=== PATIENT | female | born 1940 | race Caucasian/White ===

== ENCOUNTER 2016-08-17 14:00 | Outpatient (RCR) | payer MEDICARE | END 2016-08-31 12:29 | disposition home or self-care (01) | LOC: PT 14:00 | DX: M79.651 Pain in right thigh (principal) ==

== ENCOUNTER → 2016-08-22 | Outpatient (CLI) | payer MEDICARE ==
[~2016-08-22] MED LIST: BACLOFEN10 M1; CEFACLOR; CELECOXIB100 M1; FAMOTIDINE 20 MG; FUROSEMIDE40 MG; IPRATROPIUM BROM3 M1 IH; MYRBETRIQ25 MG; NEURONTIN300 MG/CAP; NORTRIPTYLINE H10 M2; PREDNISONE20 M1 PO; SIMVASTATIN40 M1; TIZANIDINE HYDRO4 MG
== END ==
LOC: RAD 14:57
DX: M79.651 Pain in right thigh (principal); S32.591D Other specified fracture of right pubis, subsequent encounter for fracture with routine healing; M84.411A Pathological fracture, right shoulder, initial encounter for fracture; R10.30 Lower abdominal pain, unspecified

== ENCOUNTER → 2016-09-15 | Outpatient (CLI) | payer MEDICARE | LOC: RAD 09:45 | DX: Z13.820 Encounter for screening for osteoporosis (principal); M85.80 Other specified disorders of bone density and structure, unspecified site ==

== ENCOUNTER → 2016-09-23 | Outpatient (CLI) | payer MEDICARE | LOC: LAB 12:23 | DX: S32.810D Multiple fractures of pelvis with stable disruption of pelvic ring, subsequent encounter for fracture with routine healing (principal); M19.012 Primary osteoarthritis, left shoulder ==

== ENCOUNTER → 2016-11-03 | Outpatient (CLI) | payer MEDICARE | LOC: LAB 12:21 | DX: E03.8 Other specified hypothyroidism (principal) ==

== ENCOUNTER → 2016-12-21 | Outpatient (CLI) | payer MEDICARE | LOC: LAB 09:08 | DX: E03.8 Other specified hypothyroidism (principal) ==

== ENCOUNTER → 2016-12-30 | Outpatient (CLI) | payer MEDICARE | LOC: LAB 10:42 | DX: M62.81 Muscle weakness (generalized) (principal) ==

== ENCOUNTER 2017-01-12 13:00 | Outpatient (RCR) | payer MEDICARE | END 2017-01-13 13:12 | disposition home or self-care (01) | LOC: PT 13:00 | DX: M19.012 Primary osteoarthritis, left shoulder (principal); M62.81 Muscle weakness (generalized); M79.651 Pain in right thigh ==

== ENCOUNTER → 2017-02-22 | Outpatient (CLI) | payer MEDICARE | LOC: LAB 11:26 | DX: R39.15 Urgency of urination (principal); N30.20 Other chronic cystitis without hematuria ==

== ENCOUNTER 2017-04-16 09:34 | Emergency (ER) | payer MEDICARE ==
[~2017-04-16] VITALS: Ht 152.4 cm; Wt 80.0 kg
[2017-04-16] MEDS ORDERED: PREDNISONE20 M1 PO (12:24)
[2017-04-16] MEDS ORDERED: IPRATROPIUM BROM3 M1 IH (12:24)
[2017-04-16] MEDS ORDERED: BACLOFEN10 M1 (12:40)
[2017-04-16] MEDS ORDERED: FAMOTIDINE 20 MG (12:40)
[2017-04-16] MEDS ORDERED: TIZANIDINE HYDRO4 MG (12:40)
[2017-04-16] MEDS ORDERED: CELECOXIB100 M1 (12:40)
[2017-04-16] MEDS ORDERED: NORTRIPTYLINE H10 M2 (12:40)
[2017-04-16] MEDS ORDERED: NEURONTIN300 MG/CAP (12:40)
[2017-04-16] MEDS ORDERED: FUROSEMIDE40 MG (12:40)
[2017-04-16] MEDS ORDERED: CEFACLOR (12:41)
[2017-04-16] MEDS ORDERED: MYRBETRIQ25 MG (12:41)
[2017-04-16] MEDS ORDERED: SIMVASTATIN40 M1 (12:41)
[2017-04-16 12:58] VITALS: BP 132/64
== END 2017-04-16 13:00 | disposition home or self-care (01) ==
LOC: ED 09:34
DX: J44.1 Chronic obstructive pulmonary disease with (acute) exacerbation (principal); F17.200 Nicotine dependence, unspecified, uncomplicated; Z99.81 Dependence on supplemental oxygen; S70.01XA Contusion of right hip, initial encounter; R91.1 Solitary pulmonary nodule; W07.XXXA Fall from chair, initial encounter; Y92.009 Unspecified place in unspecified non-institutional (private) residence as the place of occurrence of the external cause; F32.9 Major depressive disorder, single episode, unspecified; G62.9 Polyneuropathy, unspecified

== ENCOUNTER → 2017-05-01 | Outpatient (CLI) | payer MEDICARE ==
[2017-04-16 12:58] VITALS: BP 132/64
== END ==
LOC: LAB 17:34
DX: R31.9 Hematuria, unspecified (principal)

== ENCOUNTER → 2017-05-12 | Outpatient (CLI) | payer MEDICARE ==
[2017-04-16 12:58] VITALS: BP 132/64
== END ==
LOC: LAB 12:24
DX: R91.1 Solitary pulmonary nodule (principal)

== ENCOUNTER → 2017-05-15 | Outpatient (CLI) | payer MEDICARE ==
[2017-04-16 12:58] VITALS: BP 132/64
== END ==
LOC: LAB 10:11
DX: E78.00 Pure hypercholesterolemia, unspecified (principal); M79.1 Myalgia

== ENCOUNTER → 2017-05-19 | Outpatient (CLI) | payer MEDICARE | LOC: CARDREHAB 07:57 | DX: Z13.6 Encounter for screening for cardiovascular disorders (principal); E78.5 Hyperlipidemia, unspecified; J44.9 Chronic obstructive pulmonary disease, unspecified; F17.200 Nicotine dependence, unspecified, uncomplicated; I10 Essential (primary) hypertension | CPT/HCPCS: A9500 ==

== ENCOUNTER 2017-06-08 11:00 | Outpatient (RCR) | payer MEDICARE | END 2017-06-08 11:30 | disposition home or self-care (01) | LOC: PT 11:00 | DX: M25.552 Pain in left hip (principal); M25.551 Pain in right hip | CPT/HCPCS: G0283-GP; G8978-GP; G8979-GP ==

== ENCOUNTER → 2017-06-15 | Outpatient (CLI) | payer MEDICARE ==
[2017-06-15 10:49] LABS: BUN/CREATININE RATIO 17.7 (6.0-26.0); CALCIUM 9.3 mg/dL (8.4-10.2)
== END ==
LOC: LAB 10:27
PROVIDERS: Internal Medicine Pulmonary Disease
DX: R91.1 Solitary pulmonary nodule (principal)

== ENCOUNTER → 2017-07-27 | Outpatient (CLI) | payer MEDICARE ==
[2017-07-27 10:31] LABS: BUN/CREATININE RATIO 23.8 (6.0-26.0); CALCIUM 8.9 mg/dL (8.4-10.2); POTASSIUM 4.6 mmol/L (3.6-5.0)
== END ==
LOC: LAB 10:02
PROVIDERS: Family Medicine
DX: R60.0 Localized edema (principal)

== ENCOUNTER 2017-08-14 16:46 | Emergency (ER) | payer MEDICARE ==
[2017-08-14] MEDS ORDERED: LYRICA 150MG C150 MG PO (16:59)
[2017-08-14] MEDS ORDERED: DURAGESIC1 EACH TD (16:59)
[2017-08-14] MEDS ORDERED: ANTABUSE250 MG PO (17:06)
[2017-08-14 17:35] LABS: ALT/SGPT 41 U/L (9-52); AST-SGOT 34 U/L (14-36); BUN/CREATININE RATIO 21.7 (6.0-26.0); CALCIUM 9.1 mg/dL (8.4-10.2); CARBON DIOXIDE 33 mmol/L (22-30); GLUCOSE 94 mg/dL (65-105); POTASSIUM 4.2 mmol/L (3.6-5.0); SODIUM 136 mmol/L (137-145); TOTAL BILIRUBIN 0.4 mg/dL (0.2-1.3)
[2017-08-14 17:37] LABS: BASO # 0.1 (0.02-0.10); EOS # 0.3 (0.04-0.40); EOS % 4.3 % (1.0-5.0); HEMATOCRIT 40.3 % (37.0-47.0); HEMOGLOBIN 12.7 g/dL (12.5-16.0); LYMPH# 2.5 (1.50-4.00); MEAN CELL VOLUME 91 fl (78-100); MEAN CORPUSCULAR HEMOGLOBIN 29 pg (27-31); MEAN CORPUSCULAR HGB CONC 32 g/dL (33-37); MEAN PLATELET VOLUME 11.1 fl (7.4-10.4); MONO # 0.7 (0.20-0.80); NEU # 4.2 (1.40-6.50); PLATELET COUNT 244 K/mm3 (130-400); RED BLOOD COUNT 4.43 M/mm3 (4.10-5.30); RED CELL DISTRIBUTION WIDTH 14.6 % (11.5-14.5); WHITE BLOOD COUNT 7.8 K/mm3 (4.8-10.8)
[2017-08-14 17:42] LABS: ALCOHOL IN-HOUSE < 10 mg/dL
[2017-08-14 18:17] LABS: URINE WBC 0 /hpf (0-3)
[2017-08-14 18:42] LABS: URINE APPEARANCE CLEAR; URINE COLOR LT YELLOW
[2017-08-14 18:43] LABS: PH-URINE 5.5 (5.0 - 8.0); URINE BILIRUBIN NEGATIVE (NEGATIVE); URINE BLOOD NEGATIVE (NEGATIVE); URINE GLUCOSE NEGATIVE (NEGATIVE); URINE KETONE NEGATIVE (NEGATIVE); URINE LEUKOCYTE ESTERASE NEGATIVE (NEGATIVE); URINE NITRATE NEGATIVE (NEGATIVE); URINE PROTEIN(semi-quant) NEGATIVE (NEGATIVE); URINE UROBILINOGEN NORMAL (NORMAL)
[2017-08-14 19:15] VITALS: BP 146/68
== END 2017-08-14 19:15 | disposition home or self-care (01) ==
LOC: ED 16:46
PROVIDERS: Nurse Practitioner Primary Care
DX: R53.81 Other malaise (principal); R06.2 Wheezing; Z88.0 Allergy status to penicillin; Z88.2 Allergy status to sulfonamides; F32.9 Major depressive disorder, single episode, unspecified; G62.9 Polyneuropathy, unspecified; F17.200 Nicotine dependence, unspecified, uncomplicated; F10.21 Alcohol dependence, in remission

== ENCOUNTER 2017-11-10 18:59 | Emergency (ER) | payer MEDICARE ==
[~2017-11-10] VITALS: Ht 165.1 cm; Wt 70.5 kg
[~2017-11-10 18:59] MED LIST changes: +ANTABUSE250 MG PO; +DURAGESIC1 EACH TD; +LYRICA 150MG C150 MG PO
[2017-11-10] MEDS ORDERED: NORCO 325 MG-51 TA1 PO (20:47)
[2017-11-10 20:58] VITALS: BP 124/65
== END 2017-11-10 20:58 | disposition home or self-care (01) ==
LOC: ED 18:59
DX: S22.42XA Multiple fractures of ribs, left side, initial encounter for closed fracture (principal); W01.198A Fall on same level from slipping, tripping and stumbling with subsequent striking against other object, initial encounter; Y92.59 Other trade areas as the place of occurrence of the external cause; J44.9 Chronic obstructive pulmonary disease, unspecified; G89.29 Other chronic pain; G62.9 Polyneuropathy, unspecified

== ENCOUNTER → 2018-02-02 | Outpatient (CLI) | payer MEDICARE ==
[~2018-02-02] MED LIST changes: +NORCO 325 MG-51 TA1 PO
== END ==
LOC: RAD 10:32
DX: M43.17 Spondylolisthesis, lumbosacral region (principal); G95.89 Other specified diseases of spinal cord; R29.6 Repeated falls

== ENCOUNTER → 2018-02-12 | Outpatient (CLI) | payer MEDICARE ==
[2018-02-12 16:30] LABS: EOS # 0.5 (0.04-0.40); EOS % 6.3 % (1.0-5.0); HEMATOCRIT 36.5 % (37.0-47.0); HEMOGLOBIN 11.4 g/dL (12.5-16.0); LYMPH# 2.3 (1.50-4.00); MEAN CELL VOLUME 73 fl (78-100); MEAN CORPUSCULAR HGB CONC 31 g/dL (33-37); MEAN PLATELET VOLUME 10.3 fl (7.4-10.4); MONO # 0.7 (0.20-0.80); NEU # 3.9 (1.40-6.50); PLATELET COUNT 282 K/mm3 (130-400); RED BLOOD COUNT 5.03 M/mm3 (4.10-5.30); WHITE BLOOD COUNT 7.4 K/mm3 (4.8-10.8)
[2018-02-12 16:33] LABS: MEAN CORPUSCULAR HEMOGLOBIN 23 pg (27-31); RED CELL DISTRIBUTION WIDTH 20.3 % (11.5-14.5)
== END ==
LOC: LAB 15:23
PROVIDERS: Internal Medicine Pulmonary Disease
DX: J44.9 Chronic obstructive pulmonary disease, unspecified (principal)

== ENCOUNTER → 2018-03-02 | Outpatient (CLI) | payer MEDICARE | LOC: RAD 12:15 | PROVIDERS: Family Medicine | DX: M48.07 Spinal stenosis, lumbosacral region (principal); D64.9 Anemia, unspecified; E03.8 Other specified hypothyroidism; R29.6 Repeated falls; Z87.81 Personal history of (healed) traumatic fracture ==

== ENCOUNTER 2018-03-05 13:00 | Outpatient (RCR) | payer MEDICARE | END 2018-03-05 13:30 | disposition home or self-care (01) | LOC: OT 13:00 | DX: M54.5 Low back pain (principal); R29.6 Repeated falls | CPT/HCPCS: G8978-GP; G8979-GP ==